=== PATIENT | male | born 1995 | race Two or more races ===

== ENCOUNTER 2018-02-12 23:51 | Emergency (ER) | payer MEDICAID, OTHER ==
[~2018-02-12] VITALS: Ht 167.6 cm; Wt 77.1 kg
[2018-02-13 05:36] VITALS: BP 114/58
== END 2018-02-13 08:47 | disposition home or self-care (01) ==
LOC: ER 23:51
DX: F41.1 Generalized anxiety disorder (principal); F32.9 Major depressive disorder, single episode, unspecified; I10 Essential (primary) hypertension
CPT/HCPCS: 36415; 80320

== ENCOUNTER 2020-06-03 18:45 | Emergency (ER) | payer MEDICAID ==
[~2020-06-03] VITALS: Ht 172.7 cm; Wt 106.6 kg
[2020-06-03 18:53] VITALS: BP 136/90
== END 2020-06-03 20:18 | disposition left against medical advice (07) ==
LOC: ER 18:45
DX: R30.9 Painful micturition, unspecified (principal); Z53.21 Procedure and treatment not carried out due to patient leaving prior to being seen by health care provider